=== PATIENT | female | born 1950 | race Caucasian/White ===

== ENCOUNTER → 2018-03-04 15:28 | Emergency (ER) | payer OTHER ==
[~2018-03-04 15:28] MED LIST: Iohexol 350* (CONTRAST) 500 ML MDV IV ONE; Magnesium Oxide TAB* 400 MG PO ONE; NS 0.9% 1000 ML* 1,000 ML BOLUS SCH; Potassium Chlor TAB* 20 MEQ TAB.ER PO ONE
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
[2018-03-04 16:24] LABS: ABS Basophils 0.1 10^3/ul (0-0.2); ABS Eosinophils 0 10^3/ul (0-0.6); ABS Lymphocytes 0.7 10^3/ul (1.0-4.8); ABS Monocytes 0.7 10^3/ul (0-0.8); ABS Neutrophils 4.6 10^3/ul (1.5-7.7); ABS Nucleated RBC 0 10^3/ul; Eosinophil % 0.2 %; Hematocrit 42 % (35-47); Hemoglobin 14.6 g/dl (12.0-16.0); Lymphocyte % 11.2 %; Mean Corpuscular HGB Conc 35 g/dl (31-36); Mean Corpuscular Hemoglobin 31 pg (27-31); Mean Corpuscular Volume 90 fL (80-97); Mean Platelet Volume 7.7 fL (7.4-10.4); Nucleated Red Blood Cells % 0; Platelet Count 235 10^3/ul (150-450); Red Blood Count 4.69 10^6/ul (4.00-5.40); Red Cell Distribution Width 14 % (10.5-15)
[2018-03-04 16:37] LABS: EGFR Non-African American 85.8 (>60)
[2018-03-04 18:36] LABS: Urine Appearance Clear; Urine Blood 1+ (Negative); Urine Color Yellow; Urine Ketones 1+ (Negative); Urine Protein Negative (Negative); Urine Red Blood Cell Trace(0-2/hpf) (Absent); Urine Specific Gravity 1.034 (1.010-1.030); Urine Urobilinogen Negative (Negative); Urine White Blood Cell Trace(0-5/hpf) (Absent)
[2018-03-04 20:35] VITALS: BP 139/95
== END | disposition home or self-care (01) ==
LOC: ED 15:28
DX: R07.9 Chest pain, unspecified (principal); S22.31XA Fracture of one rib, right side, initial encounter for closed fracture; S22.20XA Unspecified fracture of sternum, initial encounter for closed fracture; E87.6 Hypokalemia; E83.42 Hypomagnesemia; K80.20 Calculus of gallbladder without cholecystitis without obstruction; D17.71 Benign lipomatous neoplasm of kidney; R00.0 Tachycardia, unspecified; I10 Essential (primary) hypertension; R31.29 Other microscopic hematuria; G80.9 Cerebral palsy, unspecified; Z85.3 Personal history of malignant neoplasm of breast; E78.5 Hyperlipidemia, unspecified; Z90.11 Acquired absence of right breast and nipple; V40.5XXA Car driver injured in collision with pedestrian or animal in traffic accident, initial encounter; Y92.89 Other specified places as the place of occurrence of the external cause
CPT/HCPCS: 36415; 71045; 71275; 80053; 81003; 81015; 82550; 82553; 83605; 83735; 83880; 84436; 84443; 84484; 85025; 85610; 85730; 87086; 93005; 96361; 96374; 99282; A9270-GY; Q9967

== ENCOUNTER 2021-01-05 19:38 | Observation (INO) ==
[2021-01-05 20:35] LABS: ABS Eosinophils 0.1 10^3/ul (0-0.6); ABS Lymphocytes 0.5 10^3/ul (1.0-4.8); ABS Monocytes 0.5 10^3/ul (0-0.8); ABS Neutrophils 8.1 10^3/ul (1.5-7.7); Eosinophil % 0.5 %; Hematocrit 44 % (35-47); Lymphocyte % 5.9 %; Mean Corpuscular HGB Conc 34 g/dL (31-36); Mean Corpuscular Hemoglobin 31 pg (27-31); Mean Corpuscular Volume 91 fL (80-97); Mean Platelet Volume 7.3 fL (7.4-10.4); Platelet Count 263 10^3/uL (150-450); Red Blood Count 4.85 10^6 /uL (3.70-4.87); Red Cell Distribution Width 14 % (10-15); White Blood Count 9.3 10^3/uL (3.5-10.8)
[2021-01-05 20:54] LABS: Albumin 4.1 g/dL (3.2-5.2); Albumin/Globulin Ratio 1.2 (1-3); Globulin 3.5 g/dL (2-4); Potassium 3.6 mmol/L (3.5-5.0); Total Bilirubin 0.6 mg/dL (0.2-1.0); Total Protein 7.6 g/dL (6.4-8.9)
[2021-01-05 22:03] LABS: Rapid COVID-19 Molecular Undetected (Undetected)
[2021-01-05 22:09] LABS: Urine Appearance Clear; Urine Bilirubin Negative (Negative); Urine Blood 1+ (Negative); Urine Color Straw; Urine Glucose Negative (Negative); Urine Ketones Negative (Negative); Urine Nitrite Negative (Negative); Urine Protein Negative (Negative); Urine Specific Gravity 1.003 (1.002-1.030); Urine Urobilinogen Negative (Negative)
[2021-01-05 22:22] LABS: Urine Bacteria Absent (Absent); Urine Red Blood Cell Trace(0-2/hpf) (Absent); Urine Squamous Epithelial Cell Present (Absent); Urine White Blood Cell Trace(0-5/hpf) (Absent)
[2021-01-05] MEDS ORDERED: Iohexol 350 (CONTRAST) 500 ML MDV IV ONE (22:43)
[2021-01-06] MEDS ORDERED: Furosemide 20 mg/2 ml IV VIAL IV SLOW PU ONE (00:04)
[2021-01-06] MEDS: Enoxaparin 40 MG/0.4 ML SYR SUBCUT SCH ×2 (03:48→03:53)
[2021-01-06 06:42] LABS: Calcium 9.1 mg/dL (8.6-10.3); Potassium 3.6 mmol/L (3.5-5.0)
[2021-01-06 07:00] LABS: ABS Basophils 0.1 10^3/ul (0-0.2); ABS Eosinophils 0.1 10^3/ul (0-0.6); ABS Lymphocytes 0.9 10^3/ul (1.0-4.8); ABS Monocytes 0.6 10^3/ul (0-0.8); ABS Neutrophils 5.9 10^3/ul (1.5-7.7); Eosinophil % 1.2 %; Hematocrit 41 % (35-47); Hemoglobin 13.6 g/dL (12.0-16.0); Lymphocyte % 11.4 %; Mean Corpuscular HGB Conc 34 g/dL (31-36); Mean Corpuscular Hemoglobin 31 pg (27-31); Mean Corpuscular Volume 92 fL (80-97); Mean Platelet Volume 7.9 fL (7.4-10.4); Platelet Count 232 10^3/uL (150-450); Red Cell Distribution Width 15 % (10-15); White Blood Count 7.6 10^3/uL (3.5-10.8)
[2021-01-06] MEDS: Mometasone/Formoter 100/5 MDI INH SCH ×2 (08:23→19:46)
[2021-01-06] MEDS ORDERED: Perflutren Lipid Microsphere 3 ML VIAL ONE (08:35)
[2021-01-06] MEDS ORDERED: Flu vaccine *QUAD* 2021-22* 0.5 ML SYRINGE IM ONE (09:00)
[2021-01-06] MEDS: Nystatin TOP POWDER 15 GM BTL TOPICAL SCH ×2 (11:59→21:36)
[2021-01-07] MEDS: Mometasone/Formoter 100/5 MDI INH SCH (07:46)
[2021-01-07] MEDS: Enoxaparin 40 MG/0.4 ML SYR SUBCUT SCH (08:38)
[2021-01-07] MEDS: Nystatin TOP POWDER 15 GM BTL TOPICAL SCH (08:39)
[2021-01-07 13:51] VITALS: BP 143/62
== END 2021-01-07 15:30 | disposition home or self-care (01) ==
LOC: ED 19:38 → MED 19:38 → SUATTDRO 01-06 03:24
PROVIDERS: ADMIT Internal Medicine; ATTEND Hospitalist